=== PATIENT | male | born 1965 | race Caucasian/White ===

== ENCOUNTER 2022-05-02 17:17 | Outpatient (CLI) | payer BC, SELFPAY ==
[2022-05-02 22:12] LABS: Uric Acid* 4.6 mg/dL (2.2-8.4)
== END 2022-05-02 17:18 | disposition home or self-care (01) ==
PROVIDERS: Visit Provider Student in an Organized Health Care Education/Training Program
DX: M25.531 Pain in right wrist (principal)
CPT/HCPCS: 84550

== ENCOUNTER 2022-07-29 18:43 | Emergency (ER) | payer BC, SELFPAY ==
[2022-07-29 18:52] VITALS: BP 159/93; PULSE 75; RESP 16; TEMP 36.6; O2SAT 97; BMI 34.7
[2022-07-29] MEDS: OXYMETAZOLINE 0.05% NASAL SPRAY 1 SPRAY NOSTRIL-L (19:23)
--- NOTE | 2022-07-29 19:59 | ED.EPISTAXIS ---
History of Present Illness General Chief Complaint: Epistaxis/Nosebleed Stated Complaint: Bloody nose 3+ hours Time Seen by Provider: 07/29/22 18:52 History of Present Illness HPI Narrative: This patient comes in with a nose bleed at his left nostril. He states that he has been having nosebleeds on and off for the past several months. He does not report any lightheadedness or shortness of breath. He did pack some paper towel in the anterior aspect of his nose. Related Data Home Medications Medication Instructions Recorded Confirmed aspirin 81 mg tablet,delayed 81 mg PO QDAY 05/02/22 07/23/22 release (Adult Low Dose Aspirin) glipizide 5 mg tablet 5 mg PO DAILY 05/02/22 07/23/22 losartan 25 mg tablet 25 mg PO BID 05/02/22 07/23/22 metformin 1,000 mg tablet 1,000 mg PO BIDWMEAL 05/02/22 07/23/22 simvastatin 5 mg tablet 5 mg PO QHS 05/02/22 07/23/22 Allergies Allergy/AdvReac Type Severity Reaction Status Date / Time lisinopril Allergy Mild Cough Verified 07/23/22 10:16 Review of Systems Status of ROS: Reports: 10 or more systems reviewed and unremarkable except as noted in History and below Narrative: Constitutional: No fevers, no weight gain or loss. Eyes: No discharge. No vision changes. HENT: No congestion, no sore throat, no ear pain. Bleeding from the left nostril. Cardiovascular: No chest pain, no palpitations. Respiratory: No shortness of breath, no wheezes, no cough. Gastrointestinal: No abdominal pain, no vomiting, no diarrhea. Genitourinary: No dysuria, no hematuria. Musculoskeletal: Normal range of motion. Skin: No rashes, no pruritis. Neurological: No dizziness, weakness, sensory change, speech change. Endo/Heme/Allergies: No bruising or bleeding. No polydipsia. Pysch: no suicidality, no anxiety, no insomnia. All other systems reviewed and are negative. PFSH PFS Social History Smoking Status: Never smoker Do you use any of these nicotine containing products: None Second hand tobacco smoke exposure: No How often do you have a drink containing alcohol: 2-4 times a month How many standard drinks containing alcohol do you have on a typical day: 3 or 4 How often do you have six or more drinks on one occasion: Never AUDIT-C Alcohol total score: 3 Non-prescribed substance use: denies use service: No Exam Narrative: Exam Narrative: Constitutional: Well-developed, well-nourished, no acute distress. HEENT: Normocephalic, atraumatic. Bleeding from the left nostril is controlled with packing in place. No bleeding posteriorly. Neck: Normal range of motion. Nontender. Supple. Heart: Intact distal pulses. Lungs: No chest discomfort. No wheezes, rhonchi, or rales. Abdomen: Nontender. Back: Normal range of motion. Extremities: Normal range of motion. No injury. Skin: Intact. No rash. Warm. No erythema or pallor. Neurologic: No altered sensation. No weakness. Alert and oriented. Psychiatric: No suicidality. No anxiety or depression. No insomnia. Nursing notes and vitals signs are reviewed. Const: Vital Signs, click to edit/add: Vital Signs - 24 hr 07/29/22 18:52 Temperature 97.9 F Pulse Rate [Pulse Oximeter] 75 Respiratory Rate 16 Blood Pressure [Le ft Upper Arm] 159/93 H Pulse Oximetry 97 Oxygen Delivery Me thod Room Air Course Vital Signs Vital signs: Initial Vital Signs Temperature 97.9 F 07/29/22 18:52 Temperature Source Temporal Artery Scan 07/29/22 18:52 Pulse Rate 75 07/29/22 18:52 Pulse Rhythm Regular 07/29/22 18:52 Respiratory Rate 16 07/29/22 18:52 Blood Pressure 159/93 H 07/29/22 18:52 Blood Pressure Mean 115 H 07/29/22 18:52 Blood Pressure Position Sitting 07/29/22 18:52 Pulse Oximetry 97 07/29/22 18:52 Oxygen Delivery Method Room Air 07/29/22 18:52 Vital Signs Temperature 97.9 F 07/29/22 18:52 Pulse Rate 75 07/29/22 18:52 Respiratory Rate 16 07/29/22 18:52 Blood Pressure 159/93 H 07/29/22 18:52 Pulse Oximetry 97 07/29/22 18:52 Oxygen Delivery Method Room Air 07/29/22 18:52 Temperature 97.9 F 07/29/22 18:52 Pulse Rate 75 07/29/22 18:52 Respiratory Rate 16 07/29/22 18:52 Blood Pressure 159/93 H 07/29/22 18:52 Pulse Oximetry 97 07/29/22 18:52 Oxygen Delivery Method Room Air 07/29/22 18:52 MDM - Epistaxis MDM Narrative Medical decision making narrative: This patient comes in with left nostril bleeding. I removed the packing that the patient had in place which was only plugging the anterior portion of his nose and not likely stopping the bleeding. He received a dose of Afrin in that nostril and a nasal clamp was applied for about 15 minutes. This brought the bleeding to stop. He was observed for another 30-45 minutes with no ongoing bleeding. I did give him instructions regarding what to do if rebleeding occurs. He does now have a nasal clamp and the remainder of the Afrin bottle that he can use if rebleeding occurs. Discharge Plan Discharge Clinical Impression: Epistaxis Patient Disposition: Home, Self-Care Condition: Improved Additional Instructions: Use Afrin and nasal clamp if rebleeding occurs. Be very gentle with Ear Nose to allow for healing to occur. Follow up with MD return if worsening. Prescriptions: No Action losartan 25 mg tablet 25 mg PO BID simvastatin 5 mg tablet 5 mg PO QHS metformin 1,000 mg tablet 1,000 mg PO BIDWMEAL glipizide 5 mg tablet 5 mg PO DAILY aspirin [Adult Low Dose Aspirin] 81 mg tablet,delayed release (DR/EC) 81 mg PO QDAY Follow Up/Referrals: Andrea Bhatt MD [Primary Care Provider] - Stand Alone Forms: [employer] Info Instructions
== END 2022-07-29 20:07 | disposition home or self-care (01) ==
PROVIDERS: Emergency Provider Emergency Medicine Emergency Medical Services; PCP Family Medicine
DX: R04.0 Epistaxis (principal)
CPT/HCPCS: 30901; 99282; 99284